=== PATIENT | female | born 1945 | race Caucasian/White ===

== ENCOUNTER 2018-04-02 21:46 | Inpatient (IN) ==
[2018-04-03] MEDS ORDERED: traMADol 50 MG TABLET PO PRN (04:25)
[2018-04-03] MEDS ORDERED: Naloxone 0.4 MG/ML INJ IVP PRN (04:30)
[2018-04-03] MEDS ORDERED: D5% in Water 1,000 ML IVC PRN (04:32)
[2018-04-03] MEDS ORDERED: Dextrose Gel 15 GM/37.5 ML TUBE PO PRN ×2 (04:32)
[2018-04-03] MEDS ORDERED: *HR* Dextrose 50 % in Water (Syg) 50 ML SYRINGE IVP PRN (04:32)
[2018-04-03] MEDS ORDERED: hydrALAZINE 10 MG TABLET PO PRN (04:40)
--- NOTE | 2018-04-03 04:41 | Internal Med History&Physical ---
<Alyssa Flower M - Last Filed: 04/03/18 05:43> Date of Encounter: 04/03/18 Time of Encounter: 04:38 Internal Medicine - H&P: HPI Chief complaint: short of breath Admitted From: Hospital to Hospital Transfer History of present illness: Ms. Sam is a 72 year old female hx of silent MIs, pacemaker and diastolic heart failure presented to [facility] ED with shortness of breath at rest progressively worse over last 5-6 weeks. She came in today because episode of nausea, dizziness, palpitations and near syncope. She has had progressive orthopnea and pedal edema while taking daily lasix. Denies chest pain. In ED, she desaturated down to 87% with activity while on 2L and BP 160/100 this received labetalol . Found to have BNP 1593 and troponin 0.06. Elated D - Dimer lead to CTA that did not show a PE but did have cardiomegaly, interstitial pulmonary edema, and bilateral pleural effusions. EKG showed that she is paced. PMHx also includes DM and HTN. Family hx of MO with mother having CABG. Never smoker and denies EtOH. Past Med Surg Social Fam HX - Past Medical History Medical history: arthritis, CHF, coronary artery disease, diabetes, hyperlipidemia, hypertension, myocardial infarction, other Additional medical history: LEFT BBB Psychiatric history: anxiety - Past Surgical History Surgical History: appendectomy, cholecystectomy, hysterectomy, pacemaker Additional surgical history: pacer - Social History Smoking Status: Never smoker Smokeless Tobacco Status: No Alcohol use: none Drug use: none - Family History Mother Hx Family Cardiac Disorders: Yes (CABG) Internal Medicine - H&P: Meds Carvedilol 12.5 mg PO BID 08/22/15 [History] Pravastatin Sodium [Pravachol] 40 mg PO DAILY 08/22/15 [History] Amitriptyline [Elavil] 25 mg PO DAILY 04/18/17 [History] Celecoxib [Celebrex] 200 mg PO DAILY 04/18/17 [History] Furosemide [Lasix] 40 mg PO DAILY 04/18/17 [History] Metformin HCl [Fortamet] 500 mg PO DAILY 04/18/17 [History] Potassium Chloride [Klor-Con 10] 10 meq PO DAILY 04/18/17 [History] Tramadol HCl [Ultram] 50 mg PO BID PRN 04/18/17 [History] Norvasc 5 mg PO DAILY 03/24/18 [History] Aspirin [[place] Aspirin EC] 81 mg PO DAILY 04/02/18 [History] 3 Allergy/AdvReac Type Severity Reaction Status Date / Time No Known Allergies Allergy Verified 03/24/18 15:43 All Systems PM: A 10-system review of systems was performed and is negative for pertinent findings except as documented above in the HPI. - Constitutional Constitutional: no fatigue, no weight gain - EENT Eyes: no blurry vision - Cardiovascular Cardiovascular ROS IM: dyspnea, lightheadedness, orthopnea, palpitations, no chest pain, no syncope - Respiratory Respiratory: no cough, no wheezing - Gastrointestinal Gastrointestinal: nausea, no abdominal pain, no constipation, no diarrhea, no vomiting - Genitourinary Genitourinary: no dysuria, no hematuria, no urinary frequency - Endocrine Endocrine IM: no polydipsia, no polyuria - Constitutional Vitals: Temp Pulse Resp BP Pulse Ox 97.4 F L 65 18 160/69 96 04/03/18 04:33 04/03/18 04:33 04/03/18 04:33 04/03/18 04:33 04/03/18 04:33 General appearance: Present: A&O X 3, obese, answers questions appropriately. Absent: no acute distress Exam: resting in bed - Head Head exam: Present: atraumatic, normocephalic - ENT ENT exam: Present: mucous membranes dry, normal oropharynx - Respiratory Respiratory exam: Present: rales. Absent: respiratory distress, wheezes, tachypnea - Cardiovascular Cardiovascular exam: Present: +S1, +S2, systolic murmur. Absent: tachycardia - GI/Abdominal GI/Abdominal exam: Present: normal bowel sounds, soft. Absent: mass, tenderness - Extremities Exam Extremities exam: Present: full ROM, pedal edema, radial pulses palpable and symmetrical. Absent: calf tenderness, tenderness Additional comments: +1 non pitting edema above ankle - Psychiatric Psychiatric exam: Present: normal affect, normal mood - Assessment and plan (1) Acute on chronic diastolic CHF (congestive heart failure) Current Visit: Yes Status: Acute Assessment and plan: Symptomatic with BNP 1593 and CTA & X Ray showed cardiomegaly and bilat pleural effusions - last echo was 3 yrs ago showed diastolic failure with preserved EF - Echo - continue Norvasc and carvedilol - IV Lasix 40 BID - consider replete potassium as warranted by repeat BMPs (2) Elevated troponin I level Current Visit: No Status: Acute Assessment and plan: Troponin 0.6 with history of silent MO on two previous occasions - 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 - trend troponins - may need LHC in future (3) Elevated d-dimer Current Visit: No Status: Acute Assessment and plan: D-Dimer Elevated at 1008 and CTA didn't show PE; may be result of heart failure or demand ischemia - r/o DVT with bilat US (4) Hypertension Current Visit: No Status: Acute Assessment and plan: Elevated blood pressure on admission 167/87 - continue carvedilol and norvasc -hydralazine q6 PRN Qualifiers: Hypertension type: essential hypertension Qualified Code(s): I10 - Essential (primary) hypertension (5) Diabetes Current Visit: Yes Status: Chronic Assessment and plan: -hold monitor - ISS Qualifiers: Diabetes mellitus type: type 2 Diabetes mellitus extermination inspector insulin use: without assisted use Diabetes mellitus complication status: with unspecified complications Qualified Code(s): E11.8 - Type 2 diabetes mellitus with unspecified complications (6) DVT prophylaxis Current Visit: Yes Status: Acute Assessment and plan: heparin SQ - Time Spent With Patient Total time spent is greater than 50% in coordination of care (as documented) at patient's floor/unit and/or counseling patient: 25 - 35 minutes <Jay Lowe - Last Filed: 04/03/18 06:58> Date of Encounter: 04/03/18 Time of Encounter: 05:15 - EENT Eyes: no blurry vision, no change in vision Nose, mouth and throat: no nasal congestion, no sore throat - Cardiovascular Cardiovascular ROS IM: dyspnea, dyspnea on exertion, orthopnea, paroxysmal nocturnal dyspnea, no chest pain - Respiratory Respiratory: no cough, no chest congestion - Gastrointestinal Gastrointestinal: no diarrhea, no vomiting - Genitourinary Genitourinary: no dysuria, no flank pain - Musculoskeletal Musculoskeletal ROS IM: no arthralgias, no back pain - Integumentary Integumentary IM: no rash, no jaundice - Neurological Neurological ROS: no focal weakness, no frequent falls, no headache(s) - Psychiatric Psychiatric: no anxiety, no depression - Endocrine Endocrine IM: no polydipsia, no polyphagia, no polyuria - Allergic/Immunologic Allergic/Immunologic: no GI upset with certain foods - Constitutional Vitals: Temp Pulse Resp BP Pulse Ox 97.4 F L 65 18 160/69 96 04/03/18 04:33 04/03/18 04:33 04/03/18 04:33 04/03/18 04:33 04/03/18 04:33 General appearance: Present: A&O X 3, no acute distress - ENT ENT exam: Present: mucous membranes dry, normal oropharynx - Neck Neck exam general surgery: Present: full ROM, supple. Absent: tenderness - Respiratory Respiratory exam: Present: rales (both bases). Absent: accessory muscle use, chest wall tenderness, wheezes, tachypnea - Cardiovascular Cardiovascular exam: Present: RRR, +S1, +S2, systolic murmur - GI/Abdominal GI/Abdominal exam: Present: soft. Absent: tenderness - Extremities Exam Extremities exam: Present: full ROM, pedal edema, radial pulses palpable and symmetrical - Back Exam Back exam: Absent: CVA tenderness (L), CVA tenderness (R) Internal Med - H&P Results - Labs Labs: Cardiac Enzymes 04/03/18 Range/Units 04:13 Troponin I 0.07 H* (< 0.04) ng/mL - EKG Data -: EKG Interpreted by Myself - EKG Data EKG comments: 04/03/18 06:52 Paced rhythm - Diagnostic Studies Chest x-ray Status: image reviewed by me (bilateral small effusions wiht vascular congestion ) - Time Spent With Patient Total time spent is greater than 50% in coordination of care (as documented) at patient's floor/unit and/or counseling patient: - Attending Attestation I discussed the patient [place], past medical history, review of systems, lab data , and exam findings with Dr. Flower. I then saw and examined patient independently. Patient confirms CHF symptoms which include orthopnea, PND, dyspnea, dyspnea on exertion, and fatigue. Chest x-ray suggests some small bilateral pleural effusions with some vascular congestion. I reviewed her old echo and note that she had normal EF with diastolic dysfunction. However, that was almost 3 years ago. We will treat her for CHF, cycle troponins, trend EKGs , and order repeat echocardiogram. I anticipate she will improve with above measures. However, if she does not improve, she may need further workup. I do not feel she needs a thoracentesis at this time as her effusions are small. If she fails improve with conservative measures above, she may then warrant thoracentesis under ultrasound guidance. Other than my comments above I agree with Dr. Flower's assessment and plan.
[2018-04-03 05:13] LABS: Troponin I 0.07 ng/mL (< 0.04)
[2018-04-03] MEDS: *HR* Heparin 5,000 UNIT/ML VIAL SQ SCH ×3 (06:13→21:48)
[2018-04-03 07:57] LABS: BUN/Creatinine Ratio 19 (6-26); Blood Urea Nitrogen 13 mg/dL (8-23); Calcium 8.6 mg/dL (8.6-10.3); Carbon Dioxide 30 mEq/L (23-29); Chloride 101 mEq/L (98-107); Glucose 207 mg/dL (70-105); Osmolality,Calculated 294 (280-300); Potassium 3.4 mEq/L (3.5-5.1); Sodium 139 mEq/L (136-145); eGFR For Non-African Americans > 60 (> 60)
[2018-04-03] MEDS ORDERED: amLODIPine 5 MG TABLET PO SCH ×2 (09:00→17:39)
[2018-04-03] MEDS: Aspirin Enteric Coated 81 MG Tablet PO SCH (10:28)
[2018-04-03] MEDS: Furosemide 40 MG/4 ML VIAL IVP SCH ×2 (10:28→17:43)
[2018-04-03] MEDS: Insulin LISPRO 300 UNITS/3 ML VIAL SQ SCH ×3 (10:29→17:44)
--- NOTE | 2018-04-03 12:43 | Cardiology Consult Note ---
Date of Encounter: 04/03/18 Time of Encounter: 12:41 Assessment and Plan (1) Elevated troponin I level Current Visit: Yes Status: Acute minimally elevated trop, down trending.likely due to HTN and CHF. no LCH needed a this moment. c/w ASA and statin given ho CAD If TTE wnl, no further workup. (2) Acute on chronic diastolic CHF (congestive heart failure) Current Visit: Yes Status: Acute uncontrolled HTN likely one trigger; last PPM check 02/2018 98% Bi-V pacing, no event on tele. need better BP control, defer to primary team. need to f/u device clinic and cardiology wt at baseline, no extra diuresis needed (3) Hypertension Current Visit: Yes Status: Acute likely one trigger of decompensated CHF. management per primary team Qualifiers: Hypertension type: essential hypertension Qualified Code(s): I10 - Essential (primary) hypertension Discussion w patient/family: The assessment and plan as outlined above was discussed with the patient and/or family members who expressed understanding and agreement. All questions were answered. Thank you for involving us in the care of your patient. Please call with any questions. History of Present Illness Consult date: 04/03/18 Requesting physician: Jay Lowe Chief complaint: sob History of present illness: Ms. Sam is a 72 year old female ho CHF, HTN, NICM, LBBB s/p Bi-v PPM 04/18/17 , CAD, DM, HLD, P/W dyspnea weeks, 1 day of dizziness, palpitatioins. Noticed BP elevated, normally BP runs low. No cp, syncope. Hypertensive 160s/80s. Trop BNP 0.07-0.05, BNP 1593, CT PE neg. K3s. Baseline wt 185lbs, admission 185. Knows how to handle lasix based on wt at home. ECG V pacing. 02/2018 PPM check Bi-V pacing 98% On interview, feels a little better. TTE 06/25/16 LVEF 60%. Normal left ventricular size and systolic function. There is evidence of mild diastolic dysfunction of the left ventricle. Normal right ventricular size and function. No significant valvular dysfunction. Estimated RVSP was 17 mmHg. No pulmonary hypertension. Past Med Surg Social Fam HX - Past Medical History Medical history: arthritis, CHF, coronary artery disease, diabetes, hyperlipidemia, hypertension, myocardial infarction, other Additional medical history: LEFT BBB Psychiatric history: anxiety - Past Surgical History Surgical History: appendectomy, cholecystectomy, hysterectomy, pacemaker Additional surgical history: pacer - Social History Smoking Status: Never smoker Smokeless Tobacco Status: No Alcohol use: none Drug use: none - Family History Mother Hx Family Cardiac Disorders: Yes (CABG) Medications and Allergies Carvedilol 6.25 mg PO BID 08/22/15 [History] Pravastatin Sodium [Pravachol] 40 mg PO DAILY 08/22/15 [History] Amitriptyline [Elavil] 25 mg PO DAILY 04/18/17 [History] Celecoxib [Celebrex] 200 mg PO DAILY 04/18/17 [History] Furosemide [Lasix] 40 mg PO BID 04/18/17 [History] Metformin HCl [Fortamet] 500 mg PO DAILY 04/18/17 [History] Potassium Chloride [Klor-Con 10] 10 meq PO DAILY 04/18/17 [History] Tramadol HCl [Ultram] 50 mg PO BID PRN 04/18/17 [History] amLODIPine [Norvasc] 5 mg PO DAILY 03/24/18 [History] Aspirin [[place] Aspirin EC] 81 mg PO DAILY 04/02/18 [History] Budesonide/Formoterol 80/4.5 [Symbicort 80/4.5] 2 puff IH BID 04/03/18 [History ] 3 Allergy/AdvReac Type Severity Reaction Status Date / Time No Known Allergies Allergy Verified 03/24/18 15:43 All Systems Review: The remainder of the systems were reviewed and are negative - Cardiovascular Cardiovascular: as per HPI - Respiratory Respiratory: dyspnea - Hematological/Lymphatic Hematologic/Lymphatic: no easy bleeding Physical Examination Vital Signs, Last 4 Hours Temp Pulse Resp BP Pulse Ox 04/03/18 12:23 97.9 F 65 15 163/75 97 Other: General: NAD, AAO, cogent HEENT: anicteric Neck: no JVD, no bruit Chest: CTA B/L, no W/R/C Heart: RR, S1/S2, no S3/S4, no M/G/R Abdominal: BS +, soft, ND, NT Peripheral Pulses: radial pulse 2+ B/L, DP 1+ B/L Skin/Extremities: no cyanosis, B/L trace LE edema Neurological: grossly non-focal. Results 04/03/18 04:13 Lab Results 04/03/18 04/03/18 04:13 10:45 Sodium 139 Potassium 3.4 L Chloride 101 Carbon Dioxide 30 H BUN 13 Creatinine 0.68 Glucose 207 H Calcium 8.6 Troponin I 0.07 H* 0.05 H* - Imaging and Cardiology Echo: pending, report reviewed Holter: other (Tele reviewed.) - EKG Interpretation EKG results cardiology: personally reviewed, ventricular paced rhythm Consult Discharge Plan - Plan Referrals: Drew Martinez MD [Primary Care Provider] -
[2018-04-03] MEDS: Ondansetron 4 MG/2 ML VIAL IVP PRN (13:11)
--- NOTE | 2018-04-03 13:20 | Internal Med Progress Note ---
<Jared Squirest M - Last Filed: 04/03/18 13:16> Hospitalist Progress Note - Encounter Date of Encounter: 04/03/18 Time of Encounter: 13:00 - Subjective Interval History: Patient seen and examined at bedside. Patient resting comfortably. Patient complains that she cannot eat her food b/c she is still very nauseous and no one had brought her medication for this. RN at bedside with Letitia as we speak. Patient also complains that she needs to get home and cannot wait any longer for her echo and that she "will be leaving tomorrow". Clinically she does appear somewhat improved. BLE edema minimal, reports good urine output, crackles present on lung exam but mild. O2 requirements down to 1L, sats at 96% . Will continue to diurese and follow up with echo. Cardiology Recommendations appreciated. - Exam Vitals: Temp Pulse Resp BP Pulse Ox 97.9 F 65 15 163/75 97 04/03/18 12:23 04/03/18 12:23 04/03/18 12:23 04/03/18 12:23 04/03/18 12:23 Exam: General: A&O x 3, NAD Eyes: non-icteric, EOMI Throat: mucus membranes moist, trachea midline, CV: RRR, +s1 and s2, no M/G/R Resp: mild crackles at bases, no wheeze ABD: nondistended, nontender, no guarding rigidity Extremities: +1 pretibial edema, neurovascularly intact - Assessment and Plan (1) Acute on chronic diastolic CHF (congestive heart failure) Current Visit: Yes Status: Acute Assessment and Plan: Known history of CHF - BNP 1593, with increasing PND/orthopnea - CTA negative for PE in ED - EKG shows ventricular pace, no change from prior - CXR w/Cardiomegaly and BL pleural effusions - Weight unchanged from baseline - last PPM check 02/2018 98% Bi-V pacing, no event on tele - TTE 06/25/16: LVEF 60%. Normal left ventricular size and systolic function. There is evidence of mild diastolic dysfunction of the left ventricle. Normal right ventricular size and function. No significant valvular dysfunction. Estimated RVSP was 17 mmHg. No pulmonary hypertension. PLAN: - Fluid restriction, I/O monitoring, Cardiac diet, check weights - IV lasix 40 BID - Repeat TTE scheduled for this afternoon - Follow up with pacemaker Device clinic and cardiology outpatient (2) Elevated troponin I level Current Visit: Yes Status: Acute Assessment and Plan: Minimally elevated Troponin - .07-->.05 since admission - Likely 2/2 HTN and CHF exacerbation - Cardiology does not recommend LHC - Continue ASA and Statin - TTE pending Code(s): R74.8 - Abnormal levels of other serum enzymes SNOMED Code(s): 654721204 (3) Elevated d-dimer Current Visit: Yes Status: Acute Assessment and Plan: Presented without symptoms of Thromboembolic event - Reasonably high index of suspicion led to D-Dimer - D-Dimer elevated at 1008 in ED, CTA negative for PE - BLE U/S ordered to r/o DVT, results pending Code(s): R79.89 - Other specified abnormal findings of blood chemistry SNOMED Code(s): 245082143 (4) Hypertension Current Visit: Yes Status: Acute Assessment and Plan: Known history of HTN -Poorly controlled at home -Likely contributing to acute exacerbation -160s/80s since admission, patient reports similar readings at home -Continue with home Coreg and Norvasc -Will continue to monitor SNOMED Code(s): 12080481 (5) Diabetes Current Visit: Yes Status: Chronic Assessment and Plan: Metformin on hold SSI and accuchecks (6) DVT prophylaxis Current Visit: Yes Status: Acute Assessment and Plan: Heparin SQ SNOMED Code(s): 314776445, 255364085 - Time Spent with Patient Total time spent is greater than 50% in coordination of care (as documented) at patient's floor/unit and/or counseling patient: Internal Medicine: Result - Labs CBC & Chem 7: 04/03/18 04:13 Labs: BMP 04/03/18 04:13 Sodium 139 Potassium 3.4 L Chloride 101 Carbon Dioxide 30 H BUN 13 Creatinine 0.68 Glucose 207 H Calcium 8.6 Cardiac Enzymes 04/03/18 04/03/18 Range/Units 04:13 10:45 Troponin I 0.07 H* 0.05 H* (< 0.04) ng/mL Consult Discharge Plan - Plan Referrals: Drew Martinez MD [Primary Care Provider] - <Jose Angel Irizarry - Last Filed: 04/03/18 16:24> Hospitalist Progress Note - Encounter Date of Encounter: 04/03/18 Time of Encounter: 16:23 - Exam Vitals: Temp Pulse Resp BP Pulse Ox 97.9 F 65 15 163/75 97 04/03/18 12:23 04/03/18 12:23 04/03/18 12:23 04/03/18 12:23 04/03/18 12:23 - Time Spent with Patient Total time spent is greater than 50% in coordination of care (as documented) at patient's floor/unit and/or counseling patient: Internal Medicine: Result - Labs CBC & Chem 7: 04/03/18 04:13 Labs: BMP 04/03/18 04:13 Sodium 139 Potassium 3.4 L Chloride 101 Carbon Dioxide 30 H BUN 13 Creatinine 0.68 Glucose 207 H Calcium 8.6 Cardiac Enzymes 04/03/18 04/03/18 Range/Units 04:13 10:45 Troponin I 0.07 H* 0.05 H* (< 0.04) ng/mL - Attending Attestation The history, physical exam, and medical decision making was performed by the medical student either while I was physically present and actively involved or I personally re-performed the exam and medical decision making. I have verified the accuracy of the medical student's documentation with regards to the history, physical exam findings, and medical decision making on Patient is awake and alert. Feels better overall today. She is able to breathe better. Denies any chest pain or palpitations. Being treated for CHF. Has been evaluated by cardiology. Awaiting 2-D echocardiogram. Continue Diuretics. We will transition to oral diuretics and morning. <Sergio Squires M - Last Filed: 04/03/18 13:16> (4) Hypertension Qualifiers: Hypertension type: essential hypertension Qualified Code(s): I10 - Essential (primary) hypertension (5) Diabetes Qualifiers: Diabetes mellitus type: type 2 Diabetes mellitus battery builder insulin use: without battery builder use Diabetes mellitus complication status: with unspecified complications Qualified Code(s): E11.8 - Type 2 diabetes mellitus with unspecified complications
[2018-04-03] MEDS ORDERED: Perflutren Lipid Microsphere 1.3 ML in 0.9 % Sodium Chloride 8.7 ML IVP ONE (19:55)
[2018-04-04 05:10] LABS: Basophils # 0.1 K/mcL (0.0-0.2); Basophils % 1.1 %; Eosinophils # 0.3 K/mcL (0.0-0.6); Hematocrit 40.4 % (35.3-44.9); Hemoglobin 12.7 g/dL (11.5-15.4); Immature Granulocytes % 0.3 % (0-4); Lymphocytes # 2.1 K/mcL (0.6-4.6); Mean Corpuscular HGB Conc 31.4 g/dL (31.6-35.5); Mean Corpuscular Hemoglobin 29.9 pg (28.0-33.3); Mean Corpuscular Volume 95.1 fL (83.0-100.0); Monocytes # 0.6 K/mcL (0.0-1.3); Monocytes % 10.2 %; Neutrophils # 3.2 K/mcL (1.6-8.9); Platelet Count 125 K/mcL (140-400); Red Blood Count 4.25 M/mcL (3.82-4.97); Red Cell Distribution Width 13.2 % (11.5-14.5); Segmented Neutrophils % 51.4 %
[2018-04-04 05:27] LABS: BUN/Creatinine Ratio 18 (6-26); Blood Urea Nitrogen 14 mg/dL (8-23); Calcium 8.5 mg/dL (8.6-10.3); Carbon Dioxide 28 mEq/L (23-29); Chloride 102 mEq/L (98-107); Glucose 189 mg/dL (70-105); Osmolality,Calculated 292 (280-300); Potassium 3.8 mEq/L (3.5-5.1); Sodium 138 mEq/L (136-145); eGFR For Non-African Americans > 60 (> 60)
[2018-04-04] MEDS: *HR* Heparin 5,000 UNIT/ML VIAL SQ SCH ×3 (05:39→21:05)
[2018-04-04] MEDS: Aspirin Enteric Coated 81 MG Tablet PO SCH (07:45)
[2018-04-04] MEDS: Furosemide 40 MG/4 ML VIAL IVP SCH ×2 (07:47→17:31)
[2018-04-04] MEDS: Insulin LISPRO 300 UNITS/3 ML VIAL SQ SCH ×3 (07:47→17:30)
--- NOTE | 2018-04-04 09:43 | Discharge Summary ---
<Sergio Squires M - Last Filed: 04/05/18 12:34> Date of Encounter: 04/05/18 - Discharge Diagnosis (1) Acute on chronic diastolic CHF (congestive heart failure) Status: Acute (2) Elevated troponin I level Status: Acute Code(s): R74.8 - Abnormal levels of other serum enzymes SNOMED Code(s): 304864988 (3) Elevated d-dimer Status: Acute Code(s): R79.89 - Other specified abnormal findings of blood chemistry SNOMED Code(s): 224983318 (4) Hypertension Status: Acute Qualifiers: Hypertension type: essential hypertension Qualified Code(s): I10 - Essential (primary) hypertension SNOMED Code(s): 07657975 (5) Diabetes Status: Chronic Qualifiers: Diabetes mellitus type: type 2 Diabetes mellitus long term care pharmacist insulin use: without long term care pharmacist use Diabetes mellitus complication status: without complication Qualified Code(s): E11.9 - Type 2 diabetes mellitus without complications (6) DVT prophylaxis Status: Acute SNOMED Code(s): 103822580, 401618095 Hospital course: Ms. Sam is a 72 year old female with a past medical history of Diastolic HF with preserved EF, T2DM, HTN, CAD with a history of silent TX's, and a biventricular pacemaker, presented to [facility] on 04/03/18 as a transfer from [facility] due to worsening dyspnea, orthopnea, PND and also some complaints of nausea, dizziness, weakness, and near-syncope. These symptoms had been getting progressively worse over the course of 5-6 weeks, though she did not seek help until the onset of nausea, dizzyness and near-syncope which began 04/02/18. She has been taking lasix at home but has been missing some doses due to ongoing social stressors. On presentation to [facility] she appeared mildly hypervolemic with +1 pretibial edema and some mild crackles at her lung bases bilaterally. Her vitals were stable throughout her hospital course with the exception of some mild hypertension. She did require 2L O2 in the ED to maintain her SpO2, however she has since been weaned off and is comfortable back on room air. On admission, her weight appeared unchanged from baseline; however, her labs revealed BNP of 1593 and CXR showed cardiomegaly with BL pleural effusions. A CTA was performed in the ED and was negative for PE but she did have an elevated D-Dimer at 1008 so a DVT US study was ordered and was negative for DVT. She did have a slightly elevated troponin at .07 but did not have any chest pains. Cardiology was consulted d/t her h/o silent TX, however they did not recommend a LHC and believed the troponin elevation was likely secondary to her HTN and acute CHF. Their only recommendation was to have pacemaker interrogation performed outpatient. Her troponin did trend down with a repeat of .05. She was admitted for acute exacerbation of CHF, started on 40mg IV Lasix BID, and given fluid restriction, Cardiac/Diabetic Diet and monitored for symptomatic improvement. Her last Echo was 3 years ago and showed mild diastolic dysfunction with EF of 60%. A repeat echo was performed on and revealed systolic dysfunction with an EF of 30-35%. Cardiology did recommend a Stress Test as a result of this acute decompensation and considering the patients desire to not perform a LHC at [facility]. On 04/04/18 her breathing was improved, her pretibial edema was resolved and she had good urine output with no new complaints. On 04/05/18 she did undergo a nuclear stress test which revealed a medium sized, moderate intensity fixed inferior and inferolateral perfusion defect, possibly indicating an old infarct. However, the perfusion imaging was negative for ischemia. At that point, her vitals were stable, her symptoms had mostly resolved and she was deemed stable for discharge. An ISMAEL Inhibitor was added to her medication regimen for management of newly diagnosed Systolic HF and she was given instructions to follow up with her charging manipulator and PCP for further medication management. - Time Spent with Patient Total time spent providing and/or coordinating discharge services: - Discharge Medications Prescriptions: Lisinopril [Zestril] 2.5 mg PO DAILY #30 tablet Home Medications: Carvedilol 6.25 mg PO BID 08/22/15 [History] Pravastatin Sodium [Pravachol] 40 mg PO DAILY 08/22/15 [History] Amitriptyline [Elavil] 25 mg PO DAILY 04/18/17 [History] Celecoxib [Celebrex] 200 mg PO DAILY 04/18/17 [History] Furosemide [Lasix] 40 mg PO BID 04/18/17 [History] Metformin HCl [Fortamet] 500 mg PO DAILY 04/18/17 [History] Potassium Chloride [Klor-Con 10] 10 meq PO DAILY 04/18/17 [History] Tramadol HCl [Ultram] 50 mg PO BID PRN 04/18/17 [History] amLODIPine [Norvasc] 5 mg PO DAILY 03/24/18 [History] Aspirin [[place] Aspirin EC] 81 mg PO DAILY 04/02/18 [History] Budesonide/Formoterol 80/4.5 [Symbicort 80/4.5] 2 puff IH BID 04/03/18 [History ] Lisinopril [Zestril] 2.5 mg PO DAILY #30 tablet 04/05/18 [Rx] Allergies/Adverse Reactions: 3 Allergy/AdvReac Type Severity Reaction Status Date / Time No Known Allergies Allergy Verified 03/24/18 15:43 Date of admission: 04/03/18 18:06 Primary care physician: Drew Martinez MD Consults: 04/03/18 04:36 Consult to Cardiology [CONS] Routine Comment: Consulting Provider: Cardiology [place] Reason for Consult: elevated troponins hx of silent TX, clinic pt of [place] Call Completed: No - Constitutional Vitals: Temp Pulse Resp BP Pulse Ox 98.2 F 63 17 154/84 98 04/04/18 07:04 04/04/18 07:04 04/04/18 07:04 04/04/18 07:04 04/04/18 07:04 General appearance: Present: A&O X 3, no acute distress - Patient Status Disposition: Home, Self-Care - Discharge Instructions Instructions: Lisinopril (By mouth), Chronic Hypertension (DC) Follow Up With: Drew Martinez MD [Primary Care Provider] - 04/11/18 11:30 am (Please follow up as schedule..) Additional Instructions: - follow up with cardiology as an outpatient because of worsening EF - avoid high fat and high sugar diet - take home meds on time and be complaint with taking home lasix every day to prevent another exacerbation of CHF - take the newly added lisinopril medication for BP control <Terrell Tatum - Last Filed: 04/05/18 14:30> - NOTES TO OUTPATIENT PROVIDER Notes to Outpatient Provider: - follow up with cardiology for CHF management Date of Encounter: 04/05/18 Time of Encounter: 09:00 - Discharge Diagnosis (1) Acute on chronic diastolic CHF (congestive heart failure) Priority: Primary Status: Acute (2) Hypertension Priority: Secondary Status: Acute Qualifiers: Hypertension type: essential hypertension Qualified Code(s): I10 - Essential (primary) hypertension (3) Diabetes Priority: Secondary Status: Chronic Qualifiers: Diabetes mellitus type: type 2 Diabetes mellitus long term care pharmacist insulin use: without long term care pharmacist use Diabetes mellitus complication status: without complication Qualified Code(s): E11.9 - Type 2 diabetes mellitus without complications Hospital course: Ms. Sam is a 72 year old female - Time Spent with Patient Total time spent providing and/or coordinating discharge services: Date of admission: 04/03/18 18:06 Primary care physician: Drew Martinez MD Consults: 04/03/18 04:36 Consult to Cardiology [CONS] Routine Comment: Consulting Provider: Cardiology [place] Reason for Consult: elevated troponins hx of silent TX, clinic pt of [place] Call Completed: No - Constitutional Vitals: Temp Pulse Resp BP Pulse Ox 97.7 F 65 17 137/81 95 04/04/18 11:08 04/04/18 11:08 04/04/18 11:08 04/04/18 11:08 04/04/18 11:08 Exam: General: A&O x 3, NAD Eyes: non-icteric, EOMI Throat: mucus membranes moist, trachea midline, CV: RRR, +s1 and s2, no M/G/R Resp: mild crackles at bases, no wheeze ABD: nondistended, nontender, no guarding rigidity Extremities: +1 pretibial edema, neurovascularly intact - Patient Status Functional capacity at discharge: independent ambulation Overall status at discharge: patient is progressing back to baseline - Diet and Activity Activity: increase activity as tolerated Diet: low fat, low cholesterol, low salt diet (cardiac diet ) <José Luis Kilgore - Last Filed: 04/05/18 17:21> Orders not resulted at time of discharge: Pending orders 04/05/18 07:15 NM heidi perf SPECT multi [NM] Routine Date of Encounter: 04/05/18 - Discharge Diagnosis (1) Acute systolic CHF (congestive heart failure) Priority: Primary Status: Acute (2) Hypertension Status: Acute Qualifiers: Hypertension type: essential hypertension Qualified Code(s): I10 - Essential (primary) hypertension (3) Diabetes Status: Chronic Qualifiers: Diabetes mellitus type: type 2 Diabetes mellitus long term care pharmacist insulin use: without longterm use Diabetes mellitus complication status: without complication Qualified Code(s): E11.9 - Type 2 diabetes mellitus without complications Hospital course: Ms. Sam is a 72 year old female - Time Spent with Patient Total time spent providing and/or coordinating discharge services: 37min Date of admission: 04/03/18 18:06 Primary care physician: Drew Martinez MD Consults: 04/03/18 04:36 Consult to Cardiology [CONS] Routine Comment: Consulting Provider: Cardiology [facility] Reason for Consult: elevated troponins hx of silent TX, clinic pt of [place] Call Completed: No 04/04/18 14:24 Consult to Cardiology [CONS] Routine Comment: Consulting Provider: Cardiology [facility]ika Reason for Consult: worsening EF Call Completed: Yes - Constitutional Vitals: Temp Pulse Resp BP Pulse Ox 97.9 F 62 17 118/64 95 04/05/18 16:33 04/05/18 16:33 04/05/18 16:33 04/05/18 16:33 04/05/18 16:33 - Attending Attestation The history, physical exam, and medical decision making was performed by the medical student either while I was physically present and actively involved or I personally re-performed the exam and medical decision making. I have verified the accuracy of the medical student's documentation with regards to the history, physical exam findings, and medical decision making on 04/05/18. Ms Sam has been admitted for acute exac CHF. She has been found to have systolic heart failure. She had negative stress test today. She is now afebrile and ready for discharge home. Exam alert Comfortable Mucus membranes dry Heart distant No wheeze abd soft No edema now Plan D/C home today with outpatient follow up.
--- NOTE | 2018-04-04 14:57 | Internal Med Progress Note ---
<Sergio Squires M - Last Filed: 04/04/18 15:04> Hospitalist Progress Note - Encounter Date of Encounter: 04/04/18 Time of Encounter: 09:00 - Subjective Interval History: Patient seen and examined at bedside. Patient resting comfortably. Patient reports a strong desire to leave this morning. No events overnight. No new or worsening complaints. Continues to have good urine output. Patient was still on 2LNC during exam this morning but reports that she is not getting short of breath when she ambulates to the bathroom. Patient will be titrated down as tolerated. A 6 minute walk test has been ordered to determine her O2 needs prior to discharge. Echo results came back this afternoon, new onset systolic HF with EF of 30%. Awaiting Pt records from OSH to compare. Prior study 3 years ago performed here did show preserved EF. - Exam Vitals: Temp Pulse Resp BP Pulse Ox 97.7 F 65 17 137/81 95 04/04/18 11:08 04/04/18 11:08 04/04/18 11:08 04/04/18 11:08 04/04/18 11:08 Exam: General: A&O x 3, NAD Eyes: non-icteric, EOMI Throat: mucus membranes moist, trachea midline, CV: RRR, +s1 and s2, no M/G/R Resp: mild crackles at bases, no wheeze ABD: nondistended, nontender, no guarding rigidity Extremities: +1 pretibial edema, neurovascularly intact - Assessment and Plan (1) Acute on chronic diastolic CHF (congestive heart failure) Current Visit: Yes Status: Acute Assessment and Plan: Known history of CHF - BNP 1593, with increasing PND/orthopnea - CTA negative for PE in ED - EKG shows ventricular pace, no change from prior - CXR w/Cardiomegaly and BL pleural effusions - Weight unchanged from baseline - last PPM check 02/2018 98% Bi-V pacing, no event on tele - TTE 06/25/16: LVEF 60%. Normal left ventricular size and systolic function. There is evidence of mild diastolic dysfunction of the left ventricle. Normal right ventricular size and function. No significant valvular dysfunction. Estimated RVSP was 17 mmHg. No pulmonary hypertension. PLAN: - Fluid restriction, I/O monitoring, Cardiac diet, check weights - IV lasix 40 BID - Repeat TTE completed yesterday: LVEF 30-35% Global LV systolic dysfunction Mildly dilated LV Diastolic Dysfunction with elevated filling pressures Aortic Sclerosis Moderate MR, Mild TR, Mild NH No Pulmonary HTN, No LV thrombus - Will obtain patient records from OSH to compare - Follow up with pacemaker Device clinic and cardiology outpatient (2) Elevated troponin I level Current Visit: Yes Status: Acute Assessment and Plan: Minimally elevated Troponin - .07-->.05 since admission - Likely 2/2 HTN and CHF exacerbation - Cardiology does not recommend LHC - Continue ASA and Statin Code(s): R74.8 - Abnormal levels of other serum enzymes SNOMED Code(s): 316731031 (3) Elevated d-dimer Current Visit: Yes Status: Acute Assessment and Plan: Presented without symptoms of Thromboembolic event - Reasonably high index of suspicion led to D-Dimer - D-Dimer elevated at 1008 in ED, CTA negative for PE - BLE U/S ordered to r/o DVT, results negative for DVT Code(s): R79.89 - Other specified abnormal findings of blood chemistry SNOMED Code(s): 960884834 (4) Hypertension Current Visit: Yes Status: Acute Assessment and Plan: Known history of HTN -Poorly controlled at home -Likely contributing to acute exacerbation -160s/80s since admission, patient reports similar readings at home -Continue with home Coreg and Norvasc -Will continue to monitor SNOMED Code(s): 85566148 (5) Diabetes Current Visit: Yes Status: Chronic Assessment and Plan: Metformin on hold SSI and accuchecks Pt initially refused Insulin, has since agreed (6) DVT prophylaxis Current Visit: Yes Status: Acute Assessment and Plan: Heparin SQ SNOMED Code(s): 721636109, 258799481 - Time Spent with Patient Total time spent is greater than 50% in coordination of care (as documented) at patient's floor/unit and/or counseling patient: Internal Medicine: Result - Labs CBC & Chem 7: 04/04/18 04:27 04/04/18 04:27 Labs: Short CBC 04/04/18 Range/Units 04:27 WBC 6.3 (4.3-11.1) K/mcL Hgb 12.7 D (11.5-15.4) g/dL Hct 40.4 (35.3-44.9) % Plt Count 125 L (140-400) K/mcL Neutrophils # 3.2 (1.6-8.9) K/mcL BMP 04/04/18 04:27 Sodium 138 Potassium 3.8 Chloride 102 Carbon Dioxide 28 BUN 14 Creatinine 0.77 Glucose 189 H Calcium 8.5 L - Impressions Impressions Echocardiogram 04/03/18 04:33 Impressions: LVEF 30-35%. Global LV systolic dysfunction. Mild to moderately dilated left ventricle. Diastolic dysfunction with elevated filling pressures. There is no LV thrombus. Definity echo contrast was used. Normal RV size with mild reduction in function. Aortic sclerosis. Moderate mitral regurgitation. Mild tricuspid regurgitation. Mild pulmonic regurgitation. No pulmonary hypertension. A device lead was visualized in the right atrium and right ventricle. Left Ventricular Wall Motion: Rest Echo Findings The apex, apical inferior, mid inferior, basal inferior, apical anterior, mid anterior, basal anterior, apical septal, mid inferior septal, basal inferior septal, apical lateral, mid anterior lateral, basal anterior lateral, mid anterior septal, mid inferior lateral, basal anterior septal and basal inferior lateral liu were hypokinetic. Findings: Study Quality * Technically adequate exam. ECG Findings * Normal sinus rhythm. Left Ventricle * Mild to moderately dilated left ventricle. * Diastolic dysfunction with elevated filling pressures. * There is no LV thrombus. * Definity echo contrast was used. * LVEF 30-35%. Right Ventricle * Normal RV size with mild reduction in function. Left Atrium * Moderately dilated left atrium. Right Atrium * Normal right atrial size. Aortic Valve * No aortic regurgitation. * Aortic valve not well visualized. * No aortic stenosis. * Aortic sclerosis. Mitral Valve * No mitral stenosis. * Normal mitral valve structure. * Moderate mitral regurgitation. Tricuspid Valve * Tricuspid valve not well visualized. * Mild tricuspid regurgitation. * Estimated RA pressure is 3 mmHg. * Estimated RVSP is 20 mmHg. * No pulmonary hypertension. Pulmonic Valve * Pulmonic valve is not well visualized. * No pulmonic stenosis. * Mild pulmonic regurgitation. Pulmonary Artery * Pulmonary artery not well visualized. Aorta * Normally sized aortic root. Pericardium * There is no pericardial effusion present. Device lead * A device lead was visualized in the right atrium and right ventricle. Interatrial Septum * No evidence of PFO by color Doppler. IVC * The IVC is not dilated. Consult Discharge Plan - Plan Referrals: Drew Martinez MD [Primary Care Provider] - <José Luis Kilgore - Last Filed: 04/04/18 17:41> Hospitalist Progress Note - Encounter Date of Encounter: 04/04/18 - Exam Vitals: Temp Pulse Resp BP Pulse Ox 97.7 F 74 19 160/78 92 04/04/18 15:49 04/04/18 15:49 04/04/18 15:49 04/04/18 15:49 04/04/18 15:49 - Assessment and Plan (1) Acute systolic CHF (congestive heart failure) Current Visit: Yes Status: Acute (2) Hypertension Current Visit: Yes Status: Acute (3) Diabetes Current Visit: Yes Status: Chronic - Time Spent with Patient Total time spent is greater than 50% in coordination of care (as documented) at patient's floor/unit and/or counseling patient: Internal Medicine: Result - Labs CBC & Chem 7: 04/04/18 04:27 04/04/18 04:27 Labs: Short CBC 04/04/18 Range/Units 04:27 WBC 6.3 (4.3-11.1) K/mcL Hgb 12.7 D (11.5-15.4) g/dL Hct 40.4 (35.3-44.9) % Plt Count 125 L (140-400) K/mcL Neutrophils # 3.2 (1.6-8.9) K/mcL BMP 04/04/18 04:27 Sodium 138 Potassium 3.8 Chloride 102 Carbon Dioxide 28 BUN 14 Creatinine 0.77 Glucose 189 H Calcium 8.5 L - Impressions Impressions Echocardiogram 04/03/18 04:33 Impressions: LVEF 30-35%. Global LV systolic dysfunction. Mild to moderately dilated left ventricle. Diastolic dysfunction with elevated filling pressures. There is no LV thrombus. Definity echo contrast was used. Normal RV size with mild reduction in function. Aortic sclerosis. Moderate mitral regurgitation. Mild tricuspid regurgitation. Mild pulmonic regurgitation. No pulmonary hypertension. A device lead was visualized in the right atrium and right ventricle. Left Ventricular Wall Motion: Rest Echo Findings The apex, apical inferior, mid inferior, basal inferior, apical anterior, mid anterior, basal anterior, apical septal, mid inferior septal, basal inferior septal, apical lateral, mid anterior lateral, basal anterior lateral, mid anterior septal, mid inferior lateral, basal anterior septal and basal inferior lateral liu were hypokinetic. Findings: Study Quality * Technically adequate exam. ECG Findings * Normal sinus rhythm. Left Ventricle * Mild to moderately dilated left ventricle. * Diastolic dysfunction with elevated filling pressures. * There is no LV thrombus. * Definity echo contrast was used. * LVEF 30-35%. Right Ventricle * Normal RV size with mild reduction in function. Left Atrium * Moderately dilated left atrium. Right Atrium * Normal right atrial size. Aortic Valve * No aortic regurgitation. * Aortic valve not well visualized. * No aortic stenosis. * Aortic sclerosis. Mitral Valve * No mitral stenosis. * Normal mitral valve structure. * Moderate mitral regurgitation. Tricuspid Valve * Tricuspid valve not well visualized. * Mild tricuspid regurgitation. * Estimated RA pressure is 3 mmHg. * Estimated RVSP is 20 mmHg. * No pulmonary hypertension. Pulmonic Valve * Pulmonic valve is not well visualized. * No pulmonic stenosis. * Mild pulmonic regurgitation. Pulmonary Artery * Pulmonary artery not well visualized. Aorta * Normally sized aortic root. Pericardium * There is no pericardial effusion present. Device lead * A device lead was visualized in the right atrium and right ventricle. Interatrial Septum * No evidence of PFO by color Doppler. IVC * The IVC is not dilated. - Attending Attestation The history, physical exam, and medical decision making was performed by the medical student either while I was physically present and actively involved or I personally re-performed the exam and medical decision making. I have verified the accuracy of the medical student's documentation with regards to the history, physical exam findings, and medical decision making on 04/04/18. Ms Sam is currently admitted for acute exac CHF. She has new diagnosis of systolic dysfunction with EF of 30-35%. She remains moderate to high risk at this time. Ms Sam is breathing better since diuresis. No fever or chills. EF has markedly decreased and cardiology has been consulted. No GI issues. No CP. Exam alert comfortable Mucus membranes dry Heart reg and distant No wheeze Edema present Abd soft No rash. I/P 1. Systolic heart failure - new. 2. HTN 3. DM Further diagnoses and plan as above. <Sergio Squires M - Last Filed: 04/04/18 15:04> (4) Hypertension Qualifiers: Hypertension type: essential hypertension Qualified Code(s): I10 - Essential (primary) hypertension (5) Diabetes Qualifiers: Diabetes mellitus type: type 2 Diabetes mellitus residential insulin use: without residential use Diabetes mellitus complication status: with unspecified complications Qualified Code(s): E11.8 - Type 2 diabetes mellitus with unspecified complications <José Luis Kilgore A - Last Filed: 04/04/18 17:41> (2) Hypertension Qualifiers: Hypertension type: essential hypertension Qualified Code(s): I10 - Essential (primary) hypertension (3) Diabetes Qualifiers: Diabetes mellitus type: type 2 Diabetes mellitus rat exterminator insulin use: without residential use Diabetes mellitus complication status: without complication Qualified Code(s): E11.9 - Type 2 diabetes mellitus without complications
--- NOTE | 2018-04-04 15:33 | Cardiology Progress Note ---
Date of Encounter: 04/04/18 Time of Encounter: 15:33 Assessment and Plan (1) Acute systolic CHF (congestive heart failure) Current Visit: Yes Status: Acute TTE revealed newly reduced EF at 35% with mild to moderately dilated LV, mild to moderate mitral regurgitation. Mild tricuspid regurgitation, mild pulmonic regurgitation. TTE 05/2016 showed EF 60%. Presents with on-going SOB, minimal BLE edema. CXR showed bilateral pleural effusions. CTA with moderate bilateral pleural effusions. CHF. I discussed ischemic evaluation with Mrs. Sam. Per discussion with Kevin, stress test recommended. Patient states that she would not even consider LHC. She is not sure if she would do a stress test. She will let us know if she decides to proceed and we will set up for tomorrow. Medical management reviewed. Continue carvedilol. Add aceI. May need to decrease amlodipine to allow for addition with new medications. Continue IV lasix. No I&O recorded. Strict I&O recommended. CHF education. We will follow with you. (2) Elevated troponin I level Current Visit: Yes Status: Acute Per cardiology: Minimally elevated trop, down trending.likely due to HTN and CHF. TTE noted as seen above. Discussion w patient/family: The assessment and plan as outlined above was discussed with the patient and/or family members who expressed understanding and agreement. All questions were answered. Thank you for involving us in the care of your patient. Please call with any questions. Subjective Principal diagnosis: CHF, HTN Interval history: Ms. Sam appears agitated on my exam. C/o ongoing SOB since last Thanksgiving , Occasional chest heaviness when SOB. Objective General: Conversant, No Apparent Distress HEENT: Atraumatic, Normocephaly, Mucus Membranes Moist Neck: No JVD, Normal carotid pulses Cardiac: Reg Rate and Rhythm, Normal S1 and S2, No Murmur Lungs: Other (Respirations easy, faint rales bilateral LL. ) Neuro: Alert and responsive, No focal deficits noted Abdomen: Soft, Non-Tender Skin: No rashes noted on visualized skin Musculoskeletal: No Chest Wall Tenderness Extremities: No Clubbing, No Cyanosis, No Edema, Normal Pulses Results 04/04/18 04:27 04/04/18 04:27 Lab Results 04/04/18 04/04/18 04:27 04:27 WBC 6.3 Hgb 12.7 D Hct 40.4 Plt Count 125 L Sodium 138 Potassium 3.8 Chloride 102 Carbon Dioxide 28 BUN 14 Creatinine 0.77 Glucose 189 H Calcium 8.5 L - Imaging and Cardiology Echo: report reviewed Consult Discharge Plan - Plan Referrals: Drew Martinez MD [Primary Care Provider] -
[2018-04-04] MEDS ORDERED: Insulin LISPRO 300 UNITS/3 ML VIAL SQ SCH (21:00)
[2018-04-05 06:34] LABS: Basophils # 0.1 K/mcL (0.0-0.2); Basophils % 1.2 %; Eosinophils # 0.3 K/mcL (0.0-0.6); Eosinophils % 3.7 %; Hematocrit 41.6 % (35.3-44.9); Hemoglobin 13.1 g/dL (11.5-15.4); Immature Granulocytes % 0.3 % (0-4); Lymphocytes # 1.9 K/mcL (0.6-4.6); Lymphocytes % 27.5 %; Mean Corpuscular HGB Conc 31.5 g/dL (31.6-35.5); Mean Corpuscular Volume 95.4 fL (83.0-100.0); Mean Platelet Volume 12.5 fL (9.4-12.4); Monocytes # 0.8 K/mcL (0.0-1.3); Monocytes % 11.5 %; Neutrophils # 3.8 K/mcL (1.6-8.9); Platelet Count 113 K/mcL (140-400); Red Blood Count 4.36 M/mcL (3.82-4.97); Red Cell Distribution Width 13.2 % (11.5-14.5); Segmented Neutrophils % 55.8 %
[2018-04-05] MEDS: *HR* Heparin 5,000 UNIT/ML VIAL SQ SCH ×2 (06:34→14:09)
[2018-04-05 06:58] LABS: BUN/Creatinine Ratio 20 (6-26); Blood Urea Nitrogen 17 mg/dL (8-23); Calcium 8.7 mg/dL (8.6-10.3); Carbon Dioxide 27 mEq/L (23-29); Chloride 102 mEq/L (98-107); Glucose 140 mg/dL (70-105); Osmolality,Calculated 288 (280-300); Potassium 4.3 mEq/L (3.5-5.1); Sodium 137 mEq/L (136-145); eGFR For Non-African Americans > 60 (> 60)
[2018-04-05] MEDS ORDERED: Regadenoson 0.4 MG/5 ML SYRINGE IVP ONE (07:22)
[2018-04-05] MEDS: Insulin LISPRO 300 UNITS/3 ML VIAL SQ SCH ×3 (07:29→17:10)
[2018-04-05] MEDS: Ondansetron 4 MG/2 ML VIAL IVP PRN (07:56)
[2018-04-05] MEDS ORDERED: amLODIPine 5 MG TABLET PO SCH (09:00)
[2018-04-05] MEDS: Aspirin Enteric Coated 81 MG Tablet PO SCH (10:21)
[2018-04-05] MEDS: Furosemide 40 MG/4 ML VIAL IVP SCH ×2 (10:22→17:10)
--- NOTE | 2018-04-05 14:15 | Discharge Summary ---
Orders not resulted at time of discharge: Pending orders 04/05/18 07:15 NM heidi perf SPECT multi [NM] Routine Date of Encounter: 04/05/18 Time of Encounter: 09:00 Hospital course: Ms. Sam is a 72 year old female - Time Spent with Patient Total time spent providing and/or coordinating discharge services: - Discharge Medications Home Medications: Carvedilol 6.25 mg PO BID 08/22/15 [History] Pravastatin Sodium [Pravachol] 40 mg PO DAILY 08/22/15 [History] Amitriptyline [Elavil] 25 mg PO DAILY 04/18/17 [History] Celecoxib [Celebrex] 200 mg PO DAILY 04/18/17 [History] Furosemide [Lasix] 40 mg PO BID 04/18/17 [History] Metformin HCl [Fortamet] 500 mg PO DAILY 04/18/17 [History] Potassium Chloride [Klor-Con 10] 10 meq PO DAILY 04/18/17 [History] Tramadol HCl [Ultram] 50 mg PO BID PRN 04/18/17 [History] amLODIPine [Norvasc] 5 mg PO DAILY 03/24/18 [History] Aspirin [Pronghorn Aspirin EC] 81 mg PO DAILY 04/02/18 [History] Budesonide/Formoterol 80/4.5 [Symbicort 80/4.5] 2 puff IH BID 04/03/18 [History ] Allergies/Adverse Reactions: 3 Allergy/AdvReac Type Severity Reaction Status Date / Time No Known Allergies Allergy Verified 03/24/18 15:43 Date of admission: 04/03/18 18:06 Primary care physician: Drew Martinez MD Consults: 04/03/18 04:36 Consult to Cardiology [CONS] Routine Comment: Consulting Provider: Cardiology Vika Reason for Consult: elevated troponins hx of silent [place], clinic pt of [facility] Call Completed: No 04/04/18 14:24 Consult to Cardiology [CONS] Routine Comment: Consulting Provider: Cardiology Vika Reason for Consult: worsening EF Call Completed: Yes - Constitutional Vitals: Temp Pulse Resp BP Pulse Ox 98.2 F 56 16 118/56 90 04/05/18 11:42 04/05/18 11:42 04/05/18 11:42 04/05/18 11:42 04/05/18 11:42 General appearance: Present: A&O X 3, no acute distress - Discharge Instructions Follow Up With: Drew Martinez MD [Primary Care Provider] -
--- NOTE | 2018-04-05 15:51 | Cardiology Progress Note ---
Date of Encounter: 04/05/18 Time of Encounter: 15:40 Assessment and Plan (1) Acute systolic CHF (congestive heart failure) Current Visit: Yes Status: Acute TTE revealed newly reduced EF at 35% with mild to moderately dilated LV, mild to moderate mitral regurgitation. Mild tricuspid regurgitation, mild pulmonic regurgitation. TTE 05/2016 showed EF 60%. Presents with on-going SOB for one year, minimal BLE edema. CXR showed bilateral pleural effusions. CTA with moderate bilateral pleural effusions. CHF. Stress test completed and negative for ischemia. Noted prior infarct that is consistent with her known disease. H/o [facility] x2 and [employer] per records. Further work-up can be considered out-pt. Patient adament during stay she did not want to even consider C. She states that she may consider in future if needed. She would like to see her mill tender [place] in [place]. I offered f/u with [facility] and she declines but wants to keep an appt she already has scheduled in April with Dr. Eldridge. Recommend close f/u in one week. Medical management reviewed. Continue carvedilol and aceI. On IV lasix. No edema on exam, she is laying flat comfortably. Patient did not measure I&O. Appears to have improved. Recommend converting to oral lasix and she should take every day. CHF education. Instructed to call her mill tender [employer] with weight gain (3lbs in a day or 5 lbs in a week) or increasing symptoms. Low sodium diet stressed. Cardiology will sign off. Call with questions. Plan of care reviewed with Dr. Brown. (2) Elevated troponin I level Current Visit: Yes Status: Acute Per cardiology: Minimally elevated trop, down trending. likely due to HTN and CHF. TTE noted as seen above. Discussion w patient/family: The assessment and plan as outlined above was discussed with the patient and/or family members who expressed understanding and agreement. All questions were answered. Thank you for involving us in the care of your patient. Please call with any questions. Subjective Principal diagnosis: CHF, HTN Interval history: Ms. Sam reports she is breathing better. States oxygen helps and she was disappointed she did not qualify for home O2. Denies chest pain. Says she went through the stress test fine. Objective Vital Signs, Last 4 Hours Temp Pulse Resp BP Pulse Ox 04/05/18 14:51 95 04/05/18 11:42 98.2 F 56 16 118/56 90 General: Conversant HEENT: Atraumatic, Normocephaly, Mucus Membranes Moist Neck: No JVD, Normal carotid pulses Cardiac: Reg Rate and Rhythm, Normal S1 and S2, No Murmur Lungs: Normal Breath Sounds, No Wheeze, Rales, Rhonchi, Other (diminished bases) Neuro: Alert and responsive, No focal deficits noted Abdomen: Soft, Non-Tender Skin: No rashes noted on visualized skin Musculoskeletal: No Chest Wall Tenderness Extremities: No Clubbing, No Cyanosis, No Edema, Normal Pulses Results 04/05/18 06:02 04/05/18 06:02 Lab Results 04/05/18 04/05/18 06:02 06:02 WBC 6.7 Hgb 13.1 Hct 41.6 Plt Count 113 L Sodium 137 Potassium 4.3 Chloride 102 Carbon Dioxide 27 BUN 17 Creatinine 0.86 Glucose 140 H Calcium 8.7 - Imaging and Cardiology Stress Test: report reviewed Echo: report reviewed - EKG Interpretation EKG results cardiology: personally reviewed Consult Discharge Plan - Plan Instructions: Lisinopril (By mouth), Chronic Hypertension (DC) Additional Instructions: - follow up with cardiology as an outpatient because of worsening EF - avoid high fat and high sugar diet - take home meds on time and be complaint with taking home lasix every day to prevent another exacerbation of CHF - take the newly added lisinopril medication for BP control Referrals: Drew Martinez MD [Primary Care Provider] - 04/11/18 11:30 am (Please follow up as schedule..) Prescriptions: Lisinopril [Zestril] 2.5 mg PO DAILY #30 tablet
[2018-04-05 16:34] VITALS: BP 118/64
== END 2018-04-05 18:05 | disposition home or self-care (01) | DRG 293 ==
LOC: 2ANU → SUATTDRO 04-03 00:05
PROVIDERS: ADMIT Family Medicine; ATTEND Internal Medicine